=== PATIENT | female | born 1970 | race Caucasian/White ===

== ENCOUNTER 2016-06-24 05:58 | Emergency (ER) | payer SELFPAY ==
--- NOTE | 2016-06-24 19:29 | ER ---
ADMIT: 06/24/2016 RM/LOC: ER [facility] MR#: [id number] [facility] [address] [place] [id number] HERMELINDO LAWSON [address] [place] [address] Emergency Room Report SEX: F AGE: 45 : 1970 DATE: 06/24/2016 HISTORY OF PRESENT ILLNESS: The patient is a 45-year-old female, came to the ER because of palpitation and feeling more anxious. The patient states she had intermittent episodes of palpitation during the last few years and states every time she has, she becomes more anxious and the palpitation increases. The patient states recently the anxiety level in her life has increased. The patient states she was sleeping when she woke up with anxiety and heart racing, which lasted less than 2 hours and was resolved in the ER. The patient denies any suicidal or homicidal ideation. In the ER, the patient is in no pain or distress. The patient has stable vitals, sitting in bed quietly answering the question. Monitoring of the patient did not show any arrhythmias or other abnormalities. PHYSICAL EXAMINATION: HEAD and NECK: Noncontributory. RESPIRATORY: Normal breath sounds bilaterally. HEART: Normal heart sounds without any extra beats or extra sounds or murmurs. ABDOMEN: Soft. EXTREMITIES: There is no swelling in the extremities. The rest of the physical exam is noncontributory. The patient denied using any drugs or taking any medications other than the iron pills for anemia. The conjunctiva is not pale. EKG 12-lead, showed normal sinus rhythm without any ST or T changes or Q-waves or arrhythmia. The patient received Ativan p.o. 1 mg in the ER. The patient is stable to be discharged to home with return precautions and follow up with the primary doctor as needed. Geoffrey Asher MD/ modl JOB #: [id number] CC: Geoffrey Asher MD, Attending Physician Adonis Pratt MD, Family Physician
== END 2016-06-24 06:30 | disposition home or self-care (01) ==
LOC: ER 05:58
DX: F41.9 Anxiety disorder, unspecified (principal); R00.2 Palpitations; Z79.899 Other long term (current) drug therapy